=== PATIENT | female | born 1985 | race African-American/Black ===

== ENCOUNTER 2019-07-07 08:40 | Outpatient (CLI) | payer BC ==
[2019-07-07 10:26] LABS: BHCG - Serum Negative (NEGATIVE); Pregs Control Background? CLEAR/WHITE (CLR/WHITE); Pregs Control Bar Appear? YES (CONTROL BAR)
== END 2019-07-07 08:41 | disposition home or self-care (01) ==
LOC: LABBT 08:40
PROVIDERS: ATTEND Obstetrics & Gynecology
DX: Z01.812 Encounter for preprocedural laboratory examination (principal); N93.9 Abnormal uterine and vaginal bleeding, unspecified
CPT/HCPCS: 84703

== ENCOUNTER 2019-07-14 09:35 | Day surgery (SDC) | payer BC ==
[2019-07-06 09:24] VITALS: BMI 40.2
[2019-07-07 10:17] LABS: Hemoglobin 10.2 g/dL (12.0-16.0); Mean Corpuscular Hemoglobin 23.4 pg (27.0-31.0); Mean Corpuscular Volume 75.2 fL (78.0-98.0); Platelet Count 319 thou/uL (130-400); RBC Distribution Width 14.6 % (11.5-14.5); Red Blood Cell (RBC) Count 4.37 mill/uL (4.20-5.40)
--- NOTE | 2019-07-14 08:41 | HP ---
REASON FOR ADMISSION: Menorrhagia with benign endometrial biopsy. SCHEDULED PROCEDURE: Hysteroscopy with endometrial ablation with Mattie. HISTORY OF PRESENT ILLNESS: Ms. Ramon is a 33-year-old 4, para 4, status post x2, x2, and tubal ligation with a long history of menorrhagia. She had an endometrial biopsy in March, which was benign and desires conservative management with endometrial ablation. MATHEMATICS PROFESSOR HISTORY: As noted. Negative Pap smear. The patient has mild microcytic anemia. PAST MEDICAL HISTORY: Mild obesity. PAST SURGICAL HISTORY: MATHEMATICS PROFESSOR only. ALLERGIES: LATEX. MEDICATIONS: Valacyclovir. SOCIAL HISTORY: Denies tobacco, alcohol, or IV drug abuse. FAMILY HISTORY: Noncontributory. REVIEW OF SYSTEMS: Noncontributory. PHYSICAL EXAMINATION: GENERAL: White female, in no acute distress. VITAL SIGNS: 5 foot 1 inch, 213, BMI 40, blood pressure 118/78, pulse 83, and respirations 18. HEENT: Within normal limits. LUNGS: Clear to auscultation bilaterally. HEART: Regular rhythm. BREASTS: No masses bilaterally. ABDOMEN: Soft, nontender. No rebound or guarding. : Vulva without lesions. Vagina without discharge. Cervix, parous. Uterus anteverted, 8-week size. Adnexa, no masses bilaterally. EXTREMITIES: No clubbing, cyanosis, or edema. DIAGNOSTIC DATA: Ultrasound reveals a uterus measuring 9.7 x 6.39 x 5.4 cm with the uterine volume of 175 mL. Normal-appearing right and left adnexa. Endometrial thickness was within normal limits. Uterus is midline to slightly anteverted on ultrasound. IMPRESSION: Persistent menorrhagia, unresponsive to medical management. PLAN: Hysteroscopy, possible D and C, endometrial ablation with Mattie. We will administer appropriate antibiotic and DVT prophylaxis. The patient understands risks and benefits of procedure including bleeding, perforation, and recurrence of her menorrhagia as well as post ablation syndrome. Job ID: [id number]
[2019-07-14] MEDS ORDERED: Ketorolac Tromethamine 30 MG/ML VIAL ONE (10:22)
[2019-07-14] MEDS ORDERED: Rocuronium Bromide 10 MG/ML (10ML VIAL) ONE (10:22)
[2019-07-14] MEDS ORDERED: PROPOFOL 200 MG/20 ML VIAL ONE (10:22)
[2019-07-14] MEDS ORDERED: Dexamethasone 20 MG/5 ML VIAL ONE (10:22)
[2019-07-14] MEDS ORDERED: Ondansetron PF 4 MG/2 ML Vial ONE (10:22)
[2019-07-14] MEDS ORDERED: Lidocaine 1% PF 5 ML VIAL ONE (10:22)
[2019-07-14] MEDS ORDERED: Succinylcholine Chloride 20 MG/ML 10 ml SYRINGE FS ONE (10:22)
[2019-07-14] MEDS ORDERED: Glycopyrrolate 0.2 MG/ML 5 ML SYRINGE ONE (10:22)
[2019-07-14] MEDS ORDERED: CeleCOXIB 100 MG CAP ONE (10:34)
[2019-07-14] MEDS ORDERED: Fentanyl 100 MCG/2 ML VIAL ONE (11:49)
[2019-07-14] MEDS ORDERED: Midazolam HCl 2 mg/2 ml Vial ONE (12:02)
--- NOTE | 2019-07-14 13:44 | OP ---
DATE OF PROCEDURE: 07/14/2019 PREOPERATIVE DIAGNOSES: 1. Menorrhagia. 2. Dysfunctional uterine bleeding. POSTOPERATIVE DIAGNOSES: 1. Menorrhagia. 2. Dysfunctional uterine bleeding. PROCEDURES PERFORMED: Hysteroscopy with Mattie global endometrial ablation. ANESTHESIA: General. MEDICATIONS: 2 g Ancef pre-incision. DVT PROPHYLAXIS: SCDs. OPERATIVE FINDINGS: 1. Pre and post sound 9 cm. 2. Normal saline 750 mL of fluid used intraoperatively. 3. 40 mL fluid deficit. 4. Hysteroscopic confirmation of good ablation of endometrium. DISPOSITION: Recovery room in good condition. DESCRIPTION OF PROCEDURE: After obtaining appropriate informed consent, the patient was taken to the operating room, where anesthesia was achieved, and the patient was prepped and draped in dorsal lithotomy position. Sliding speculum was placed in the vagina. Cervix was identified and grasped with single-tooth tenaculum at 12 o'clock. Uterus sounded to 9 cm. Severely dilated up to appropriate level. Hysteroscope introduce was confirmed. No evidence of perforation and a normal contour appearing endometrial cavity. Hysteroscope was removed. The Mattie device was introduced at a setting of 4.5 cm depth and deployed to the appropriate width. Balloon on the cervix was inflated and cavity integrity test was carried out x2, which revealed an intact cavity. Therapy cycle was carried out for 120 seconds and the device was removed from the uterus in the prescribed manner. The hysteroscope was reintroduced, which confirmed good ablation of the uterus. No evidence of perforation was noted. The hysteroscope was removed. Tenaculum was removed. Speculum was removed. The patient awakened, extubated, and taken to recovery room in good condition. She will be followed by [facility] [place] in 4 to 6 weeks. Job ID: [id number]
== END 2019-07-14 14:55 | disposition home or self-care (01) ==
LOC: SDC 09:35
PROVIDERS: ATTEND Obstetrics & Gynecology
PROC: 0U5B8ZZ Destruction of Endometrium, Via Natural or Artificial Opening Endoscopic (ICD-10-PCS; principal; 2019-07-14)
DX: N92.0 Excessive and frequent menstruation with regular cycle (principal); D50.9 Iron deficiency anemia, unspecified; E66.01 Morbid (severe) obesity due to excess calories; Z68.41 Body mass index [BMI] 40.0-44.9, adult; Z79.899 Other long term (current) drug therapy; Z91.040 Latex allergy status
CPT/HCPCS: 85027; 86850; 86900; 86901; J0690; J1100; J1885; J2001; J2250; J2405; J2704; J3010